=== PATIENT | male | born 1980 | race Two or more races ===

== ENCOUNTER 2024-09-24 18:36 | Emergency (ER) | payer MEDICAID, SELFPAY ==
[2024-09-24 18:37] VITALS: BMI 26.6
--- NOTE | 2024-09-24 19:00 | PD.EDBACK ---
ED Back Injury Pain RME/HPI General Chief Complaint: Back Pain/Injury Stated Complaint: BACK PAIN FOR A LONG TIME, GOT WORSE TODAY. Time Seen by Provider: 09/24/24 18:40 Source: patient, family, RN notes reviewed and old records reviewed Arrival date/time: 09/24/24 18:36 Mode of arrival: ambulatory Limitations: no limitations RME / HPI RME / HPI Narrative: 44yom presents to ED for thoracic back pain. Patient reports hx of thoracic back pain for years but pain seemed to worsen today. Pain exacerbated by ROM, prolonged standing, bending forward. Denies prior injury/trauma or fall. No fever, cough, shortness of breath, chest pain, nausea/vomiting, dizziness or syncope reported. Patient has taken ibuprofen intermittently with some relief, no medications or treatments today. Related Data Previous Rx's ?Medication ?Instructions ?Recorded ibuprofen 800 mg tablet 800 mg PO TID PRN pain #30 tabs 10/01/20 meclizine 25 mg tablet 25 mg PO BID PRN dizziness #20 tabs 08/26/23 acetaminophen 500 mg tablet 1,000 mg (2 x 500 mg) PO Q6H PRN 09/24/24 (Tylenol Extra Strength) pain #30 tabs ibuprofen 600 mg tablet 600 mg PO Q6H PRN pain #30 tabs 09/24/24 lidocaine 5 % topical patch 1 patch topical QDAY PRN pain #15 09/24/24 ea methocarbamol 500 mg tablet 500 mg PO Q8H PRN pain #30 tabs 09/24/24 Allergies Allergy/AdvReac Type Severity Reaction Status Date / Time No Known Allergies Allergy Verified 09/24/24 18:39 Review of Systems Review of Systems Systems Reviewed: All systems reviewed, normal except as documented Constitutional Constitutional: Denies chills and Denies fever(s) ENT Ears, Nose, Mouth, and Throat: Denies neck pain and Denies vertigo Cardiovascular Cardiovascular: Denies chest pain, Denies dyspnea and Denies syncope Respiratory Respiratory: Denies cough and Denies dyspnea Musculoskeletal Musculoskeletal: Reports back pain and Denies neck pain Neurologic Neurologic: Denies syncope and Denies vertigo Past Medical History Past Medical History ENDOCRINE: Positive Diabetes Mellitus Type 2 Surgical History OTHER SURGICAL HX: denies pshx Social History SMOKING STATUS: Former smoker SUBSTANCE USE: does not use ALCOHOL: Former ED Exam General Limitations: Present no limitations General appearance: Present alert and in no apparent distress Head Head exam: Present atraumatic and normocephalic Eye Eye exam: Present normal appearance, PERRL and EOMI ENT ENT exam: Present normal exam and mucous membranes moist Neck Neck exam: Present normal inspection and full ROM Chest Chest inspection: Present normal inspection and symmetric chest wall rise Respiratory Respiratory exam: Present normal lung sounds bilaterally; Absent respiratory distress Cardiovascular Cardiovascular exam: Present regular rate and normal rhythm Extremities Exam Extremities exam: Present normal inspection and full ROM Back Exam Back exam: Present full ROM and paraspinal tenderness (b/l thoracic); Absent vertebral tenderness Neurological Exam Neurological exam: Present alert and oriented X3 Psychiatric Psychiatric exam: Present normal affect and normal mood Skin Skin exam: Present warm, dry, intact and normal color Course Quality Measures none Orders Category Date Time Status CXR2 [XR chest 2V] Stat Exams 09/24/24 19:03 Completed CYCLObenzaPRINE [Flexeril] Med 09/24/24 19:03 Discontinued 10 mg PO X1 ONE HYDROcodone*/APAP 5/325 [Randolph 5/325] Med 09/24/24 19:03 Discontinued 1 tab PO X1 ONE Ketorolac Inj [Toradol Inj] Med 09/24/24 19:03 Discontinued 30 mg IM X1 ONE Vital Signs Vital signs: Vital Signs Temperature 98.2 F 09/24/24 19:01 Pulse Rate 88 09/24/24 19:01 Respiratory Rate 18 09/24/24 19:01 Blood Pressure 116/75 09/24/24 19:01 Pulse Oximetry (%) 98 09/24/24 19:01 Oxygen Delivery Method Room Air 09/24/24 19:01 Back Pain / Injury MDM Narrative MDM Narrative:: 44yom presents to ED for thoracic back pain. Patient reports hx of thoracic back pain for years but pain seemed to worsen today. Pain exacerbated by ROM, prolonged standing, bending forward. Denies prior injury/trauma or fall. No fever, cough, shortness of breath, chest pain, nausea/vomiting, dizziness or syncope reported. Patient has taken ibuprofen intermittently with some relief, no medications or treatments today. Patient reassessed. Back pain improved after medications administered. Patient is neurologically intact, able to ambulate without difficulty. Encouraged rest, NSAID, muscle relaxer, ice/heat application prn. PCP follow-up as needed. Stable for discharge, RTED precautions given. Patient data External records reviewed:: [facility] previous records ( ED visit for vertigo) Clinical information provided by:: patient and spouse Social determinants that could affect healthcare access:: other (specify) (Poor access to healthcare) Patient has the following chronic illnesses:: DM2 How is presenting disease/condition affected by chronic disease/condition?: uneffected by Evaluation data The following diagnostics were reviewed and interpreted by me:: radiology exam(s) Lab and/or radiology exams considered but not ordered:: none Interpretation Summary: CXR: no acute process per my read Medications / Prescriptions Medications or Prescriptions considered but not ordered:: None Medication administrations:: Medication Administration History Discontinued Medications Hydrocodone Bitart/Acetaminophen (Hydrocodone/Apap 5/325 Tablet) 1 tab PO X1 ONE Stop: 09/24/24 19:04 Last Admin: 09/24/24 19:22 Dose: 1 tab Documented By: LAMAR Cyclobenzaprine HCl (Cyclobenzaprine 5 Mg Tablet) 10 mg PO X1 ONE Stop: 09/24/24 19:04 Last Admin: 09/24/24 19:22 Dose: 10 mg Documented By: LAMAR Ketorolac Tromethamine (Ketorolac Inj 60 Mg/2 Ml Vial) 30 mg IM X1 ONE Stop: 09/24/24 19:04 Last Admin: 09/24/24 19:22 Dose: 30 mg Documented By: LAMAR Above medications administered in ED Consultations Consultation(s) initiated? (list below): No Diagnosis Differential diagnosis back pain/injury: other (Strain, sprain, acute on chronic pain, trauma) Most likely diagnosis given after review of the tests above:: Acute on chronic back pain Admission Indicated Admission indicated?: not indicated Admission Request Was there a request for admission?: No Disposition Plan Disposition Plan: Discharge Discharge Attestation Discharge Attestation: The patient and all family members were given an opportunity to ask questions and understood the discharge instructions. Discharge instructions specifically effects, indications for sooner follow up or return to the emergency department, and the expected course of current diagnosis. Patient condition: Stable Discharge Plan Plan Patient Disposition: HOME (Self Care) Patient condition on transfer: Stable Prescriptions/Referrals Prescriptions/Med Rec: New ibuprofen 600 mg tablet 600 mg PO Q6H PRN (Reason: pain) Qty: 30 0RF methocarbamol 500 mg tablet 500 mg PO Q8H PRN (Reason: pain) Qty: 30 0RF acetaminophen [Tylenol Extra Strength] 500 mg tablet 1,000 mg PO Q6H PRN (Reason: pain) Qty: 30 0RF lidocaine 5 % adhesive patch,medicated 1 patch topical QDAY PRN (Reason: pain) Qty: 15 0RF Rx Instructions: leave on most painful area for up to 12 hrs No Action ibuprofen 800 mg tablet 800 mg PO TID PRN (Reason: pain) Qty: 30 0RF meclizine 25 mg tablet 25 mg PO BID PRN (Reason: dizziness) Qty: 20 0RF Referrals: No Primary/Family,Physician [Primary Care Provider] - In 1 week Problem List Clinical Impression: Back pain, thoracic, Acute on chronic back pain Patient/Caregiver Discharge Instructions Education Materials: ED Back Pain (Acute or Chronic) Print Language: Polish Stand Alone Forms: Alee Liu Info., Patient Portal Info Letter PA/ADVERTISING PROJECT MANAGER Supervising Physician PA/ADVERTISING PROJECT MANAGER Supervising Physician: Tianna
[2024-09-24 19:01] VITALS: BP 116/75; PULSE 88; RESP 18; TEMP 36.8; O2SAT 98
--- NOTE | 2024-09-24 19:03 | XR_ITS ---
Examination: PA lateral chest 2 views TECHNIQUE: Upright PA and lateral chest 2 views. Exam date and time: September 24, 2024, 1833 hours Comparison October 01, 2020 INDICATIONS: Onset chest pain today. FINDINGS: Normal heart size. Lungs are clear. Osseous structures are demineralized IMPRESSION: No active disease
[2024-09-24] MEDS: KETOROLAC INJ 60 MG/2 ML VIAL 30 MG IM (19:22)
[2024-09-24] MEDS: HYDROcodone/APAP 5/325 TABLET 1 TAB PO (19:22)
[2024-09-24] MEDS: CYCLObenzaPRINE 5 MG TABLET 10 MG PO (19:22)
[2024-09-24 20:09] VITALS: RESP 18
== END 2024-09-24 20:10 | disposition home or self-care (01) ==
PROVIDERS: Emergency Provider Emergency Medicine
DX: G89.29 Other chronic pain (principal); M54.6 Pain in thoracic spine
CPT/HCPCS: 71046; 96372; 99283; J1885; A9270

== ENCOUNTER → 2024-09-25 | Outpatient (CLI) | payer MEDICAID, SELFPAY ==
--- NOTE | 2024-09-25 | XR_ITS ---
Examination: Lumbar spine, 5 views Technique: Lumbar spine AP, lateral, coned lateral lower lumbar spine, bilateral obliques 5 views Exam date and time: September 25, 2024 1221 hours INDICATIONS: Lower back pain 5 years FINDINGS: Mild osteopenia Mild to moderate diffuse facet arthropathy No lumbar fracture, acute No significant lumbar disc narrowing IMPRESSION: No lumbar fracture Mild lumbar spondylosis No significant lumbar disc narrowing
== END | disposition home or self-care (01) ==
DX: M47.816 Spondylosis without myelopathy or radiculopathy, lumbar region (principal)
CPT/HCPCS: 72110

== ENCOUNTER → 2025-06-07 | Outpatient (CLI) | payer MEDICAID, SELFPAY ==
--- NOTE | 2025-06-07 16:05 | XR_ITS ---
Examination: Shoulder, right, 3 views Technique: Shoulder AP internal rotation, AP external rotation, Y view shoulder, 3 views Exam date and time : June 07, 2025, 1617 hours INDICATIONS: Right shoulder pain 1 month. FINDINGS: Mild osteoarthritis glenohumeral joint No shoulder fracture or dislocation No AC joint separation IMPRESSION: Mild osteoarthritis glenohumeral joint
== END | disposition home or self-care (01) ==
LOC: CDIM 16:00
DX: M19.011 Primary osteoarthritis, right shoulder (principal)
CPT/HCPCS: 73030